=== PATIENT | male | born 1960 | race Caucasian/White ===

== ENCOUNTER → 2017-02-08 | Outpatient (CLI) | payer OTHER | END | disposition home or self-care (01) | LOC: EDSTATUS 02-05 09:26 → GMAM 02-05 11:30 | PROVIDERS: ATTEND Family Medicine | DX: Z00.00 Encounter for general adult medical examination without abnormal findings (principal); E29.1 Testicular hypofunction; R53.83 Other fatigue ==

== ENCOUNTER → 2017-11-25 | Outpatient (CLI) | payer BC, OTHER | LOC: GMAM 11:35 | PROVIDERS: ATTEND Family Medicine | DX: E29.1 Testicular hypofunction (principal) ==

== ENCOUNTER → 2018-06-02 | Outpatient (CLI) | payer BC | LOC: GMAM 10:44 | PROVIDERS: ATTEND Family Medicine | DX: E29.1 Testicular hypofunction (principal); Z12.5 Encounter for screening for malignant neoplasm of prostate ==

== ENCOUNTER → 2018-12-29 | Outpatient (CLI) | payer BC | LOC: GMAM 10:50 | PROVIDERS: ATTEND Family Medicine | DX: E29.1 Testicular hypofunction (principal) ==

== ENCOUNTER → 2019-06-08 | Outpatient (CLI) | payer BC ==
--- NOTE | 2019-06-08 11:14 | RAD ---
EXAM DESCRIPTION: Knee,Left 1 or 2 Views CLINICAL HISTORY: 58 years Male, M25.562/M25.552/M25.561/M25.551 COMPARISON: None. FINDINGS: Two views of the left knee show no acute fracture or malalignment. No lateral view was included on this exam, limiting sensitivity for detection of a joint effusion. No medial or lateral joint space narrowing. Soft tissue calcification adjacent to the medial and lateral femoral condyle suggest the possibility of remote collateral ligament injury. There is some irregular calcification adjacent to the fibular head concerning for an old healed fibular head fracture. Mild patellofemoral joint space narrowing. IMPRESSION: Degenerative changes in the patellofemoral compartment and evidence of remote trauma. No acute left knee abnormality. Electronically signed by: Ron Dent MD 06/08/2019 11:12 AM CDT
--- NOTE | 2019-06-08 11:14 | RAD ---
EXAM DESCRIPTION: Knee,Right 1 or 2 Views CLINICAL HISTORY: 58 years Male, M25.562/M25.552/M25.561/M25.551 COMPARISON: None. FINDINGS: Two views of the right knee show no acute fracture or malalignment. No medial or lateral joint space narrowing. Small osteophytes in the patellofemoral compartment without significant patellofemoral joint space narrowing. No soft tissue abnormality. IMPRESSION: Mild degenerative changes in the patellofemoral compartment. Electronically signed by: Ron Dent MD 06/08/2019 11:13 AM CDT
--- NOTE | 2019-06-08 11:25 | RAD ---
EXAM DESCRIPTION: Pelvis CLINICAL HISTORY: 58 years Male, M25.562/M25.552/M25.561/M25.551 COMPARISON: None. FINDINGS: There is no acute fracture or malalignment. The hip and sacroiliac joints are unremarkable. The pubic symphysis is anatomically aligned. There is no focal bone lesion or suspicious soft tissue abnormality. IMPRESSION: Negative exam. Electronically signed by: Ron Dent MD 06/08/2019 11:23 AM CDT
== END ==
LOC: RAD 08:32
PROVIDERS: ATTEND Orthopaedic Surgery
DX: M17.11 Unilateral primary osteoarthritis, right knee (principal); M17.12 Unilateral primary osteoarthritis, left knee; M25.551 Pain in right hip; M25.552 Pain in left hip

== ENCOUNTER → 2019-10-30 | Outpatient (CLI) | payer BC ==
--- NOTE | 2019-10-30 12:21 | MRI ---
EXAM DESCRIPTION: Lumbar Spine w/o Contrast : Magnetic Resonance Imaging. CLINICAL HISTORY: RADICULOPATHY LUMBAR REGION COMPARISON: MRI lumbar spine without contrast July 2014. Pelvis radiograph June 2019 TECHNIQUE: Multiplanar, multiple standard sequences, non contrast MRI, lumbar spine. FINDINGS: L5-S1: The disc is well visualized on axial T2 series 501, image 3. Disc desiccation with disc space preserved. Hyperintense T2-weighted annular fissure in the posterior mid margin of the bulging disc, measuring 9.3 x 2.6 mm, impressing on the ventral thecal sac. Degenerative hypertrophy of the posterior elements: flavum ligaments more right than left; bilaterally shortened pedicles with AP canal diameter 11 mm. Moderate right foraminal narrowing and minimal left foraminal narrowing. Hyperintense circumscribed T1 and T2 hemangioma in the S1 sacral segment. L4-L5: Mild disc desiccation with disc space preserved. Minimal posterior midline bulge. Bilaterally shortened pedicles. Minimal degenerative hypertrophic changes in the posterior elements: Facet joints and posterior flavum ligaments. AP canal diameter 10 mm. Mild bilateral foraminal narrowing. Hyperintense circumscribed T1 and T2 hemangioma abutting the inferior left L4 endplate. L3-L4: Disc desiccation with disc space preserved. Bulging disc and anterior endplate reactive changes. More to the left of midline. No disc bulge. Bilaterally shortened pedicles. Bilateral degenerative hypertrophy of the posterior elements. AP canal diameter 10 mm. Mild bilateral foraminal narrowing, more on the left. L2-L3: Disc desiccation and disc space preserved. Anterior bulging and anterior ridging more to the left of midline. No posterior bulge. Bilateral hypertrophic posterior elements impressing on the posterior thecal sac. Bilaterally shortened pedicles. AP canal diameter 12 mm. Bilateral foramina are patent. L1-L2: Disc desiccation. Schmorl's node versus old compression injury superior L2 endplate with concavity. No posterior bulging. Hypertrophic degenerative changes in the posterior elements more on the right. Borderline mild canal narrowing. Mild to moderate narrowing of the right foramen secondary to facet hypertrophy. Left foramen is patent. T12-L1: Normal signal in the disc with disc space preserved. No disc bulging. Minimal hypertrophy of the posterior elements. Canal and foramina are patent. Conus terminates just below the disc space. Upper spine is slightly kyphotic. Paravertebral soft tissues negative.. Distal cord normal signal and caliber. Normal marrow signal in the remaining vertebral bodies and the posterior elements. Vertebral bodies are not compressed at any level. IMPRESSION: 1. Significant canal narrowing at several levels due to degenerative hypertrophy of the posterior flavum ligaments and facet joints, and bilateral pedicle shortening, most likely congenital. No significant foraminal narrowing at any level. 2. Old compression injury versus Schmorl's node superior L2 endplate is stable with no marrow edema or retropulsion. 3. Slight widening with no significant increase in protrusion of posterior midline annular fissure at L5-S1. 4. Borderline mild central canal stenosis L4-L5 is stable. Borderline mild central canal stenosis at L3-L4 is also stable. Electronically signed by: Oswald Cheek MD 10/30/2019 12:19 PM [facility]
== END ==
LOC: MRI 07:59
PROVIDERS: ATTEND Anesthesiology Pain Medicine
DX: M51.16 Intervertebral disc disorders with radiculopathy, lumbar region (principal); M51.17 Intervertebral disc disorders with radiculopathy, lumbosacral region; M48.062 Spinal stenosis, lumbar region with neurogenic claudication; M24.28 Disorder of ligament, vertebrae

== ENCOUNTER → 2020-03-22 | Outpatient (CLI) | payer BC | LOC: GMAM 11:35 | PROVIDERS: ATTEND Family Medicine | DX: R07.9 Chest pain, unspecified (principal); R10.13 Epigastric pain ==

== ENCOUNTER → 2020-04-18 | Outpatient (CLI) | payer BC ==
--- NOTE | 2020-04-19 16:11 | MRI ---
EXAM DESCRIPTION: Cervical Spine: MRI. CLINICAL HISTORY: 59 years Male CERVICALGIA COMPARISON: Cervical radiographs on March 22. TECHNIQUE: Multiplanar, high-field MRI, multiple sequences, non-contrast Cervical spine. FINDINGS: C3-C4: Bilateral uncinate spurs. Minimal disc desiccation and disc space loss. Posterior midline bulge. Bilateral neural foraminal narrowing. Mild canal narrowing. C4-C5: Disc desiccation with disc space preserved. Tiny posterior bulge. Left uncinate spur. Degenerative hypertrophy left facet. Left neural foraminal stenosis. C5-C6: Disc desiccation and minimal disc space loss. Anterior bulging and endplate ridging. Posterior broad-based disc bulge abutting the cord and the bilateral C6 nerve. Hypertrophy of the posterior ligaments. Minimal arthrosis and hypertrophy of the left facet joint. Bilateral neural foraminal stenosis more left than right. Normal signal in the C2-C3 disc, C6-C7 disc, and C7-T1 disc. with no bulging. Disc spaces preserved. Canal and neural foramina are patent. Facet joints . Spinal alignment is unremarkable. No cord compression or cord edema. Atlantoaxial joint negative.. Base of the cerebellar tonsils is at the level of the foramen magnum. Paravertebral soft tissues negative. Vertebral bodies are not compressed at any. Normal marrow signal in the remaining vertebral bodies and the posterior elements. IMPRESSION: 1. Bilateral neural foraminal stenosis at C5-C6 secondary to multiple factors. Correlate for C6 radiculopathy. 2. Left neural foraminal stenosis at C4-C5 secondary to multiple factors. Correlate for left C5 radiculopathy. Electronically signed by: Oswald Cheek MD 04/19/2020 4:10 PM CDT
== END ==
LOC: MRI 11:07
PROVIDERS: ATTEND Family Medicine
DX: M48.02 Spinal stenosis, cervical region (principal)

== ENCOUNTER → 2020-08-09 | Outpatient (CLI) | payer BC | LOC: GMAM 13:28 | PROVIDERS: ATTEND Family Medicine | DX: Z00.00 Encounter for general adult medical examination without abnormal findings (principal) ==